=== PATIENT | male | born 1955 | race Caucasian/White ===

== ENCOUNTER 2018-08-27 19:46 | Emergency (ER) | payer OTHER ==
[~2018-08-27] VITALS: Ht 188 cm; Wt 111.1 kg
[~2018-08-27 19:46] MED LIST: ACETAMINOPHEN325 M1 PO; AVELOX 400 MG400 MG PO; BENADRYL25 MG PO; CEPHALEXIN 250250 M1; CIPROFLOXACIN500 M1 PO; CLARITIN10 MG PO; COLACE100 MG PO; DULCOLAX5 MG PO; FLONASE NS; IBUPROFEN200 M2 PO; LISINOPRIL-HCT1 EAC2 PO; MOM PO; NORCO 5-325 TA1 EACH PO; RANITIDINE 150150 MG PO; ZOSYN 4.5 GRAM4.5 GM IV
[2018-08-27] MEDS ORDERED: DOXYCYCLINE 10100 MG (19:59)
[2018-08-27] MEDS ORDERED: NORVASC5 MG (19:59)
[2018-08-27] MEDS ORDERED: LEVAQUIN 500 M500 M2 PO (20:14)
[2018-08-27 20:45] VITALS: BP 145/98
== END 2018-08-27 20:51 | disposition home or self-care (01) ==
LOC: M.ERS 19:46
DX: S01.511A Laceration without foreign body of lip, initial encounter (principal); J01.00 Acute maxillary sinusitis, unspecified; I10 Essential (primary) hypertension; K21.9 Gastro-esophageal reflux disease without esophagitis; G47.30 Sleep apnea, unspecified; Z88.1 Allergy status to other antibiotic agents; Z88.8 Allergy status to other drugs, medicaments and biological substances; W22.8XXA Striking against or struck by other objects, initial encounter; Y92.89 Other specified places as the place of occurrence of the external cause; Y93.89 Activity, other specified; Y99.8 Other external cause status

== ENCOUNTER 2018-09-05 08:25 | Emergency (ER) | payer OTHER ==
[~2018-09-05] VITALS: Ht 190.5 cm; Wt 111.1 kg
[~2018-09-05 08:25] MED LIST changes: +DOXYCYCLINE 10100 MG; +LEVAQUIN 500 M500 M2 PO; +NORVASC5 MG
[2018-09-05 08:45] VITALS: BP 170/104
== END 2018-09-05 09:18 | disposition home or self-care (01) ==
LOC: M.ERS 08:25
DX: S01.511D Laceration without foreign body of lip, subsequent encounter (principal); X58.XXXD Exposure to other specified factors, subsequent encounter; I10 Essential (primary) hypertension; K21.9 Gastro-esophageal reflux disease without esophagitis; Z88.8 Allergy status to other drugs, medicaments and biological substances